=== PATIENT | female | born 1965 | race African-American/Black ===

== ENCOUNTER 2021-07-06 14:10 | Outpatient (CLI) | payer BC | END 2021-07-06 14:11 | disposition home or self-care (01) | LOC: CSHRAD 14:10 | PROVIDERS: ATTEND Student in an Organized Health Care Education/Training Program | DX: R06.02 Shortness of breath (principal) | CPT/HCPCS: 71046 ==

== ENCOUNTER 2022-06-28 14:21 | Outpatient (CLI) | payer BC | END 2022-06-28 14:22 | disposition home or self-care (01) | LOC: CSHRAD 14:21 | PROVIDERS: ATTEND Student in an Organized Health Care Education/Training Program | DX: R06.02 Shortness of breath (principal) | CPT/HCPCS: 71046 ==